=== PATIENT | male | born 1980 | race Two or more races ===

== ENCOUNTER 2024-04-17 16:18 | Emergency (ER) | payer MEDICAID, SELFPAY ==
[2024-04-17 16:18] VITALS: BMI 38.0
[2024-04-17 16:48] VITALS: BP 141/90; PULSE 83; RESP 18; TEMP 37.1; O2SAT 96
--- NOTE | 2024-04-17 17:10 | PD.EDRME ---
Rapid Medical Screening Exam RME Arrival date/time: 04/17/24 16:18 43-year-old male presents emergency department complaining of epigastric pain with nausea that started several days ago. Chief Complaint: Abdominal Pain Time Seen by Provider: 04/17/24 17:02 Vital signs: Vital Signs Temperature 98.7 F 04/17/24 16:48 Pulse Rate 83 04/17/24 16:48 Respiratory Rate 18 04/17/24 16:48 Blood Pressure 141/90 H 04/17/24 16:48 Pulse Oximetry (%) 96 04/17/24 16:48 Oxygen Delivery Method Room Air 04/17/24 16:48 Vital signs reviewed by provider: Yes
[2024-04-17 17:51] LABS: Collection Type, Urine Clean Catch; RBC,Urine 0 /hpf (0-3); Squamous Epithelial Cell,Urine 0 /hpf (0-5)
[2024-04-17 17:52] LABS: Basophils % (Auto) 0 % (0-2.5); Eosinophils # (Auto) 0.3 Thou/mm3 (0.0-0.5); Eosinophils % (Auto) 3 % (0-10); Hematocrit 48.1 % (41.0-53.0); Hemoglobin 17.3 g/dL (13.5-16.0); Immature Granulocytes % (Auto) 0 % (0-0); Immature Granulocytes Auto 0.02 Thou/mm3 (0.00-0.00); Lymphocytes # (Auto) 2.6 Thou/mm3 (1.0-4.8); Lymphocytes % (Auto) 33 % (10-50); Mean Corpuscular Hemoglobin 30.5 pg (25.0-35.0); Mean Corpuscular Volume 85 fL (80-100); Monocytes # (Auto) 0.6 Thou/mm3 (0.0-0.8); Monocytes % (Auto) 7 % (0-12); Neutrophils # (Auto) 4.4 Thou/mm3 (1.8-7.7); Neutrophils % (Auto) 56 % (37-80); Nucleated Red Blood Cell % 0 /100 WBC (0); Platelet Count 195 Thou/mm3 (140-440); RDW Standard Deviation 39.5 fL (35.1-43.9); Red Blood Count 5.67 Miln/mm3 (4.50-5.90); White Blood Count 7.9 Thou/mm3 (3.8-10.6)
[2024-04-17] MEDS: MG HYD/AL HYD/SIME (Maalox Reg) SUSP 30 ML UDC PO (17:57)
[2024-04-17] MEDS: FAMOTIDINE 20 MG TABLET 40 MG PO (17:57)
[2024-04-17 18:04] LABS: Amphetamine/Methamp Scrn,U Negative (Negative); Barbiturate Screen,Urine Negative (Negative); Benzodiazepines Screen,Urine Negative (Negative); Benzoylecgonine Screen, Ur Negative (Negative); Fentanyl Screen,Urine Negative (Negative); Opiate Screen,Urine Negative (Negative); THC Screen,Urine Negative (Negative)
[2024-04-17 18:07] LABS: Bacteria,Urine Rare; Bilirubin,Urine Negative (Negative); Blood,Urine Negative (Negative); Clarity,Urine Clear (Clear/Hazy); Color,Urine Yellow (Lt Yel-Yel); Culture Indicated,Urine Not Indicated; Glucose, Urine Negative (Negative); Ketones,Urine Negative (Negative); Leukocyte Esterase,Urine Negative (Negative); Nitrite,Urine Negative (Negative); Protein,Urine 1+ (Neg - Trace); Specific Gravity,Urine 1.031 (1.001-1.035); WBC,Urine < 1 /hpf (0-5)
[2024-04-17 18:08] LABS: Alanine Aminotransferase 23 U/L (10-49); Albumin, Serum 4.8 gm/dL (3.5-5.0); Albumin/Globulin Ratio 1.7 (1.2-2.2); Alkaline Phosphatase 78 U/L (46-116); Anion Gap 8 (7-16); Aspartate Amino Transferase 13 U/L (0-34); BUN/Creatinine Ratio 17 Ratio (12-20); Bilirubin,Total 1.6 mg/dL (0.3-1.2); Blood Urea Nitrogen 17 mg/dL (9-23); Calcium 9.6 mg/dL (8.3-10.6); Calcium (Corrected) 9.6 mg/dL (8.5-10.1); Carbon Dioxide 29.1 mMol/L (20.0-31.0); Chloride 102 mMol/L (98-107); Estimated Creatinine Clearance 128.5 mL/min (>60); Globulin 2.8 gm/dL (2.3-3.5); Glucose 98 mg/dL (74-106); Lipase 52 U/L (12-53); Osmolality,Calculated 279 (275-295); Potassium 3.5 mMol/L (3.4-5.1); Sodium 139 mMol/L (136-145); Total Protein 7.6 gm/dL (5.7-8.2); eGFR > 60 See Note
[2024-04-17 22:33] VITALS: BP 146/89; PULSE 78; RESP 18; TEMP 36.7; O2SAT 97
--- NOTE | 2024-04-17 23:08 | PD.EDABDPN ---
ED Abdominal Pain RME/HPI General Chief Complaint: Abdominal Pain Stated complaint: EPIGASTRIC PAIN FOR 5 DAYS Time seen by provider: 04/17/24 17:02 Arrival date/time: 04/17/24 16:18 RME / HPI RME / HPI narrative: 04/17/24 16:18 43-year-old male presents emergency department complaining of epigastric pain with nausea that started several days ago. ----- Dr. Ayon?s Main ED Evaluation: 43yo male presents to the ED for a chief complaint of epigastric pain x Friday. Patient describes his pain as aching and bloating in nature, reporting it worsens when he lies on either side. He reports associated nausea and increased belching. He was seen by his PCP and was given Milk of Magnesium and GasX without any alleviation of symptoms and his symptoms persisted, so he came in for evaluation. He denies any vomiting, diarrhea, fever, chills or any other associated symptoms. No known allergies. Patient states he is currently pain-free. Related Data Previous Rx's ?Medication ?Instructions ?Recorded aluminum-mag hydroxide-simethicone 10 ml PO TID PRN indigestion 30 04/18/24 400 mg-400 mg-40 mg/5 mL oral susp days #3,000 mL (Advanced Antacid-Antigas) famotidine 20 mg tablet (Pepcid) 20 mg PO BID 10 days #20 tabs 04/18/24 sucralfate 1 gram tablet (Carafate) 1 g PO TID 10 days #30 tabs 04/18/24 Allergies Allergy/AdvReac Type Severity Reaction Status Date / Time No Known Allergies Allergy Verified 04/17/24 16:20 Review of Systems Review of Systems Systems Reviewed: All systems reviewed, normal except as documented Past Medical History Past Medical History CARDIAC: Positive Hypertension; Negative Congestive Heart Failure RESPIRATORY: Negative Chronic Obstructive Pulmonary Disease (COPD) GENITOURINARY: Negative Renal Disease ENDOCRINE: Negative Diabetes Mellitus Type 1 or Diabetes Mellitus Type 2 Social History SMOKING STATUS: Never smoker ED Exam Narrative Physical exam: GENERAL APPEARANCE: alert and oriented x 4, well-developed, well-nourished, no acute distress VITALS: All vitals were reviewed and the pulse ox is 97% on room air, which is normal according to my interpretation. HEENT: Normocephalic, atraumatic; pupils equal, round, reactive to light; EOMI; mucous membranes pink, moist; oropharynx clear NECK: Supple LUNGS: CTABL; no wheezes, no rales, no rhonchi HEART: Regular rate, regular rhythm; normal S1, S2; no murmurs ABDOMEN: non distended; normal BS; soft, no tenderness, no guarding, no rebound; no masses, no organomegaly, no hernia BACK: no CVA tenderness EXTREMITIES: atraumatic; no edema NEUROLOGIC: awake; alert and oriented x4; cranial nerves II-XII grossly intact; no focal sensory or motor deficits PSYCHIATRIC: appropriate mood and affect SKIN: warm, dry, normal color; no rashes Course Quality Measures none Orders Category Date Time Status CBC Stat Lab 04/17/24 17:33 Completed CMP [Comprehensive Metabolic Panel] Stat Lab 04/17/24 17:33 Completed Drug Screen,Urine Stat Lab 04/17/24 17:20 Completed Lipase Stat Lab 04/17/24 17:33 Completed Urinalysis, C/S if Indicated Stat Lab 04/17/24 17:20 Completed Famotidine [Pepcid] Med 04/17/24 17:09 Discontinued 40 mg PO X1 ONE mg Hyd/Al Hyd/Alfred Susp [Maalox Susp] Med 04/17/24 17:09 Discontinued 30 ml PO X1 ONE Vital Signs Vital signs: Vital Signs Temperature 98.7 F 04/17/24 16:48 Pulse Rate 83 04/17/24 16:48 Respiratory Rate 18 04/17/24 16:48 Blood Pressure 141/90 H 04/17/24 16:48 Pulse Oximetry (%) 96 04/17/24 16:48 Oxygen Delivery Method Room Air 04/17/24 16:48 Abdominal Pain MDM MDM Narrative MDM Narrative:: Scribe Attestation: 04/17/24 - Jennifer Skelton am scribing for and in the presence of Dr. Ayon. Patient data External records reviewed:: [facility] previous records (Per chart review, patient has no previous ED visits or admissions to this facility.) Clinical information provided by:: patient Social determinants that could affect healthcare access:: none Patient has the following chronic illnesses:: HTN How is presenting disease/condition affected by chronic disease/condition?: uneffected by Evaluation data The following diagnostics were reviewed and interpreted by me:: lab results Lab and/or radiology exams considered but not ordered:: none Interpretation Summary: CBC is normal, CMP is normal, Lipase is normal, UA is unremarkable, UDS is negative, according to my interpretation. Medications / Prescriptions Medications or Prescriptions considered but not ordered:: none Medication administrations:: Medication Administration History Discontinued Medications Al Hydrox/Mg Hydrox/Simethicone (Mg Hyd/Al Hyd/Alfred (Maalox Reg) Susp 30 Ml Udc) 30 ml PO X1 ONE Stop: 04/17/24 17:10 Last Admin: 04/17/24 17:57 Dose: 30 ml Documented By: Famotidine (Famotidine 20 Mg Tablet) 40 mg PO X1 ONE Stop: 04/17/24 17:10 Last Admin: 04/17/24 17:57 Dose: 40 mg Documented By: see above Consultations Consultation(s) initiated? (list below): No Diagnosis Differential diagnosis abdominal pain: diverticulitis and other (gastritis, GERD, cholelithiasis, cholecystitis) Most likely diagnosis given after review of the tests above:: see below Admission Indicated Admission indicated?: not indicated Admission Request Was there a request for admission?: No Disposition Plan Disposition Plan: Discharge Discharge Attestation Discharge Attestation: The patient and all family members were given an opportunity to ask questions and understood the discharge instructions. Discharge instructions specifically effects, indications for sooner follow up or return to the emergency department, and the expected course of current diagnosis. Patient condition: Stable Discharge Plan Plan Patient Disposition: HOME (Self Care) Disposition Comment: Stable for discharge Patient condition on transfer: Stable Prescriptions/Referrals Prescriptions/Med Rec: New famotidine [Pepcid] 20 mg tablet 20 mg PO BID 10 Days Qty: 20 0RF sucralfate [Carafate] 1 gram tablet 1 g PO TID 10 Days Qty: 30 0RF alum-mag hydroxide-simeth [Advanced Antacid-Antigas] 400-400-40 mg/5 mL suspension 10 ml PO TID PRN (Reason: indigestion) 30 Days Qty: 3000 0RF Referrals: Mary Wright FNP [Primary Care Provider] - In 1 week Chepe Damon MD [Physician] - In 1 week Problem List Clinical Impression: GERD (gastroesophageal reflux disease), Acute epigastric pain Patient/Caregiver Discharge Instructions Discharge Activity: activity as tolerated Education Materials: GERD Lifestyle Changes, Medicines for GERD, ED GERD (Adult), ED Epigastric Pain (Uncertain Cause) Additional Instructions: Tonight you were seen for epigastric pain. This is most likely acid reflux. There is medicines waiting for you at your pharmacy. Please use these as directed and your pain should resolve. However if your pain persists or gets worse in any way you should return right away to the ER and we will take care of you Otherwise you should follow-up with your primary care doctor within the next several days Print Language: Armenian Stand Alone Forms: Sheyla Award Info., Patient Portal Info Letter
[2024-04-18 00:17] VITALS: BP 142/76; PULSE 76; RESP 18; TEMP 36.7; O2SAT 98
== END 2024-04-18 00:19 | disposition home or self-care (01) ==
PROVIDERS: Emergency Provider Emergency Medicine; PCP Nurse Practitioner
DX: K21.9 Gastro-esophageal reflux disease without esophagitis (principal); I10 Essential (primary) hypertension
CPT/HCPCS: 36415; 80053; 80307; 81001; 83690; 85025; 99283; A9270

== ENCOUNTER 2024-05-18 08:37 | Outpatient (AMB) | payer MEDICAID, SELFPAY ==
[2024-05-18 08:52] VITALS: BP 148/104; PULSE 78; RESP 19; TEMP 36.2; O2SAT 98; BMI 38.7
--- NOTE | 2024-05-18 08:52 | ORTHONT_ITS ---
Vital signs 05/18/24 08:52 Height 1.83 m Height Method Stated Weight 129.529 kg Weight Measurement Method Standing Scale BMI 38.7 BP 148/104 H Blood Pressure Source Automatic Cuff Blood Pressure Location Left Upper Arm Position Sitting Respiration 19 Pulse 78 Pulse Source Monitor Temp 97.2 F Temp Source Temporal Artery Scan Pulse Oximetry (%) 98 Oxygen Delivery Method Room Air Med/Allergies Allergies & Medications Allergies No Known Allergies Allergy (Verified 05/18/24 08:53) Medication Reconciliation aspirin 81 mg tablet,delayed release 81 mg PO QDAY 05/18/24 [History Confirmed 0 05/18/24] cholecalciferol (vitamin D3) 50 mcg/drop (2,000 unit/drop) oral drops 50 mcg PO QDAY 05/18/24 [History Confirmed 05/18/24] losartan 50 mg tablet 50 mg PO QDAY 05/18/24 [History Confirmed 05/18/24] meloxicam 7.5 mg tablet 7.5 mg PO QDAY #45 tabs 05/18/24 [Rx] metoprolol succinate 50 mg tablet,extended release 24 hr 50 mg PO QDAY 05/18/24 [History Confirmed 05/18/24] Exam Exam Patient is in no acute distress and is cooperative with the examination today. Breathing is nonlabored. Patient has a normal mood and affect. The patient has a gait that is nonantalgic Bilateral extremities were evaluated and demonstrates sensation intact to light touch. Palpable pedal pulses are present. No significant edema is present. Bilateral hips were examined. The patient has no pain with log roll of the hips. Internal rotation to 30 degrees and external rotation to 30 degrees is painless. Negative FADIR. Left knee was examined today. The left knee is in reasonable alignment. Range of motion from 0-120 degrees. Knee is stable to varus and valgus as well as AP translation with <5mm. Patient has a negative McMurrays. There is no pain with patellofemoral compression and no crepitus noted. The knee is nontender to palpation. The right knee was also examined. The right knee is in neutral alignment. Range of motion from 0-120 degrees. Knee is stable to varus and valgus as well as AP translation with <5mm. Patient has a negative McMurrays. There is no pain with patellofemoral compression and no crepitus noted. The knee is nontender to palpation diffusely. An MRI was reviewed by me. This demonstrates a large horizontal posterior horn of the medial meniscus tear as well as lateral meniscus tears. He does have significant cartilage loss. Assessment and Plan Problem List (1) Pain in right knee: Status: Acute (2) Arthritis of right knee: Status: Acute Plan: Patient is a 43-year-old male with right knee pain and right knee arthritis. He has MRI evidence of degenerative meniscal tears. I would like to get x-rays to see how his knee looks currently with weightbearing x-rays. 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 4 ([id number]) MA Intake Visit Data Collection New Patient or Established: New Patient (never been to [facility]) Reason for Visit:: RIGHT KNEE MENISCUS TEAR Seen by Clinical Staff ONLY (RN/MA): No Scheduler Maintenance Required: No PCP or OBGYN visit in last 3 months: Yes Hx Now: No Do You Feel Safe at Home: Yes Authorities Contacted: N/A Questionairres Past Medical History Past Medical History Have you ever been diagnosed with any of the following: Cardiology Problems Congestive Heart Failure: No Hypertension: Yes Respiratory Problems Chronic Obstructive Pulmonary Disease (COPD): No Genital/Urinary Problems Renal Disease: No Endocrine Problems Diabetes Mellitus Type 1: No Diabetes Mellitus Type 2: No Subjective Visit Visit for: new patient and knee Immunization / Flu Flu Vaccine in the Last 12 Months: No Flu Vaccine Exclusion Criteria: Refused by Patient History of Present Illness Chief complaint: Right knee pain She goes a 43-year-old male with right knee pain that has been ongoing for several years. He had a history of a meniscal Surgery arthroscopically done 15 years ago. He reports that he only has pain after walking greater than 7000 steps. He has not had any injections. He does not take any anti-inflammatories or any other treatment. The pain is primarily medial Pain Pain level (0-10): 5 Pain duration: ON AND OFF Pain location: inside (medial) Pain quality: sharp and aching Pain timing: increases with activity and stairs Associated signs & symptoms: none Ambulatory data Ambulatory device: none Treatments Improvement with previous injections: No Improvement with PT: No Improvement with NSAIDS: no Review of Systems Review of Systems: All systems negative unless otherwise noted in HPI.
== END 2024-05-18 09:26 | disposition home or self-care (01) ==
LOC: HODSRG 08:37
PROVIDERS: PCP Family Medicine; Referring Provider Family Medicine; Supervising Provider Orthopaedic Surgery Adult Reconstructive Orthopaedic Surgery; Visit Provider Orthopaedic Surgery Adult Reconstructive Orthopaedic Surgery
DX: M25.561 Pain in right knee (principal); M17.11 Unilateral primary osteoarthritis, right knee; S83.206D Unspecified tear of unspecified meniscus, current injury, right knee, subsequent encounter; X58.XXXD Exposure to other specified factors, subsequent encounter; I10 Essential (primary) hypertension
CPT/HCPCS: 99204; G0463

== ENCOUNTER → 2024-07-08 | Outpatient (CLI) | payer MEDICAID, SELFPAY ==
--- NOTE | 2024-07-08 16:22 | XR_ITS ---
Examination: AP bilateral knees single view AP oblique lateral right knee 3 views TECHNIQUE: Standing bilateral AP knee single view Standing AP knee flexion single view Standing lateral view right knee single view Axial right knee single view total 4 views Examination time: 2024, 1633 hours INDICATIONS: Right knee pain one year. FINDINGS: Advanced narrowing medial joint space right knee Significant osteoarthritis lateral and patellofemoral joints No fracture Moderate narrowing medial joint space left knee IMPRESSION: Advanced tricompartment osteoarthritis right knee
== END | disposition home or self-care (01) ==
LOC: CDIM 16:17
PROVIDERS: PCP Nurse Practitioner; Referring Provider Orthopaedic Surgery Adult Reconstructive Orthopaedic Surgery; Visit Provider Orthopaedic Surgery Adult Reconstructive Orthopaedic Surgery
DX: M17.11 Unilateral primary osteoarthritis, right knee (principal)
CPT/HCPCS: 73564

== ENCOUNTER 2025-03-23 06:55 | Day surgery (SDC) | payer MEDICAID, SELFPAY ==
[2025-03-22 13:08] VITALS: BMI 35.1
[2025-03-23] VITALS (10 sets, daily range): BP systolic 132–147; BP diastolic 87–103; PULSE 64–85; RESP 12–28; TEMP 36.3–36.7; O2SAT 95–100; BMI 36.1
[2025-03-23] MEDS: SODIUM CHLORIDE 0.9% 500 ML 500 ML 125 ML IV (07:42)
[2025-03-23] MEDS: fentaNYL CIT INJ 50 mCg/ML AMP 2ML (ASD USE ONLY) IVP (07:47)
[2025-03-23] MEDS: MIDAZOLAM INJ 1 MG/ML VIAL 2 ML (ASD USE ONLY) 2 MG IVP (07:49)
== END 2025-03-23 09:00 | disposition home or self-care (01) ==
PROVIDERS: PCP Nurse Practitioner; Referring Provider Surgery; Visit Provider Surgery
PROC: 0DBE8ZX Excision of Large Intestine, Via Natural or Artificial Opening Endoscopic, Diagnostic (ICD-10-PCS; CPT 45380; principal; 2025-03-23 08:00)
DX: Z12.11 Encounter for screening for malignant neoplasm of colon (principal); K64.0 First degree hemorrhoids; K64.4 Residual hemorrhoidal skin tags
CPT/HCPCS: 45378; A4649; J1200; J2250; J3010; J7999